=== PATIENT | male | born 1995 | race Caucasian/White ===

== ENCOUNTER 2017-10-10 07:15 | Outpatient (CLI) | payer OTHER ==
[~2017-10-10] VITALS: Ht 180.3 cm; Wt 128.8 kg
[2017-10-10] MEDS ORDERED: DEPAKOTE500 MG PO (07:38)
[2017-10-10 08:01] VITALS: BP 179/105; PULSE 67; TEMP 98.1
[2017-10-10] MEDS ORDERED: CEPHALEXIN500 M1 PO (09:22)
[2017-10-10 09:55] VITALS: BP 182/95; PULSE 96
== END 2017-10-10 10:27 | disposition home or self-care (01) ==
LOC: COL.CAR 07:15
DX: R55 Syncope and collapse (principal); Z91.5 Personal history of self-harm; Z82.49 Family history of ischemic heart disease and other diseases of the circulatory system